=== PATIENT | female | born 1995 ===

== ENCOUNTER 2021-11-01 06:54 | Inpatient (IN) | payer SELFPAY ==
[~2021-11-01 06:54] MED LIST: Bupivacaine 0.25% 10 ML SDV ONE
[2021-11-01] MEDS ORDERED: Calcium Carbonate 500 MG Tab.Chew PO PRN (07:17)
[2021-11-01] MEDS ORDERED: Sodium Chloride 0.9% 10 ML Syringe FLUSH PRN (07:17)
[2021-11-01] MEDS ORDERED: Nalbuphine HCl 10 MG/ 1ML Amp IVPUSH PRN (07:17)
[2021-11-01] MEDS ORDERED: Ondansetron 4 MG/2 ML SDV IVPUSH PRN (07:17)
[2021-11-01] MEDS ORDERED: Oxytocin/Lactated Ringers 10 UNIT/1,000 ML BAG IV SCH ×2 (07:30)
[2021-11-01] MEDS ORDERED: diphenhydrAMINE 50 MG/ML SDV IVPUSH PRN (07:38)
[2021-11-01] MEDS ORDERED: Bupivacaine/fentaNYL/NS 100 ML Bag EPIDUR PRN (07:38)
[2021-11-01] MEDS ORDERED: ePHEDrine 50 MG/ML SDV IVPUSH PRN (07:38)
[2021-11-01] MEDS ORDERED: fentaNYL 100 MCG/2 ML SDV EPIDUR PRN (07:38)
[2021-11-01] MEDS: Lactated Ringers 1,000 ML IV SCH ×4 (08:23→13:23)
[2021-11-01] MEDS ORDERED: Sodium Chloride 0.9% 10 ML Syringe FLUSH SCH (09:00)
[2021-11-01] MEDS ORDERED: Benzocaine/Menthol 20%-0.5% Spray 78 GM Cannister TOP PRN (15:05)
[2021-11-01] MEDS ORDERED: Witch Hazel Medicated Pads 40/Jar TOP PRN (15:05)
[2021-11-01] MEDS ORDERED: Docusate Sodium 100 MG Cap PO PRN (15:05)
[2021-11-01] MEDS: Ibuprofen 600 MG Tab PO PRN (19:55)
[2021-11-02] MEDS: Ibuprofen 600 MG Tab PO PRN ×2 (04:22→12:54)
[2021-11-02] MEDS ORDERED: Acetaminophen 325 MG Tab PO PRN (14:42)
== END 2021-11-02 15:50 | disposition home or self-care (01) | DRG 807 ==
LOC: JD.OB 06:54 → OBSVTOIN 14:43 → JD.OB 14:44
PROVIDERS: ADMIT Obstetrics & Gynecology; ATTEND Obstetrics & Gynecology
PROC: 10907ZC Drainage of Amniotic Fluid, Therapeutic from Products of Conception, Via Natural or Artificial Opening (ICD-10-PCS; principal; 2021-11-01)
PROC: 3E0R3BZ Introduction of Anesthetic Agent into Spinal Canal, Percutaneous Approach (ICD-10-PCS; 2021-11-01)
PROC: 10E0XZZ Delivery of Products of Conception, External Approach (ICD-10-PCS; 2021-11-01)
PROC: 00HU33Z Insertion of Infusion Device into Spinal Canal, Percutaneous Approach (ICD-10-PCS; 2021-11-01)
DX: O99.214 Obesity complicating childbirth (principal); Z37.0 Single live birth; Z3A.40 40 weeks gestation of pregnancy; E66.9 Obesity, unspecified
CPT/HCPCS: 36415; 51702; 59025; 59409; 85025; 86592; A9270-GY; J2590; J3010; J3490; J7120